=== PATIENT | female | born 1980 | race African-American/Black ===

== ENCOUNTER 2020-06-09 14:09 | Emergency (ER) | payer OTHER ==
[~2020-06-09] VITALS: Ht 157.5 cm; Wt 65.8 kg
[2020-06-09] MEDS ORDERED: MOBIC7.5 MG PO (15:49)
[2020-06-09 16:03] VITALS: BP 150/80
== END 2020-06-09 16:04 | disposition home or self-care (01) ==
LOC: ER 14:09
DX: S93.402A Sprain of unspecified ligament of left ankle, initial encounter (principal); S00.01XA Abrasion of scalp, initial encounter; W18.39XA Other fall on same level, initial encounter; Y93.89 Activity, other specified; Y92.89 Other specified places as the place of occurrence of the external cause; Y99.8 Other external cause status